=== PATIENT | female | born 1965 | race Caucasian/White ===

== ENCOUNTER 2020-05-01 10:00 | Outpatient (RCR) | payer BC ==
[~2020-05-01] VITALS: Ht 170.2 cm; Wt 60.9 kg
[2020-05-01] MEDS ORDERED: OMEG100032 PO (10:03)
[2020-05-01] MEDS ORDERED: GARL500C2 PO (10:03)
[2020-05-01] MEDS ORDERED: LURA40TA3 PO (10:03)
[2020-05-01] MEDS ORDERED: PEDI1TAB46 PO (10:03)
== END 2020-05-01 10:28 | disposition home or self-care (01) ==
LOC: PREOP 10:00
PROVIDERS: ATTEND Surgery
DX: Z01.818 Encounter for other preprocedural examination (principal)

== ENCOUNTER → 2020-05-02 | Outpatient (CLI) | payer BC ==
[~2020-05-02] MED LIST: GARL500C2 PO; LURA40TA3 PO; OMEG100032 PO; PEDI1TAB46 PO
== END ==
LOC: LAB FS 10:15
PROVIDERS: ATTEND Surgery
DX: Z01.818 Encounter for other preprocedural examination (principal); Z20.828 Contact with and (suspected) exposure to other viral communicable diseases
CPT/HCPCS: 87635